=== PATIENT | male | born 1990 | race American Indian/Alaskan Native ===

== ENCOUNTER 2017-03-15 00:56 | Emergency (ER) | payer SELFPAY ==
[2016-06-03 10:27] VITALS: BMI 27.7
[2017-03-15] MEDS ORDERED: Sodium Chloride 0.9% 1,000 ML IV STA (01:45)
--- NOTE | 2017-03-15 01:47 | ED PDOC ---
HPI: Abdomen Time Seen by Provider: 03/15/17 01:14 Chief Complaint (Nursing): Abdominal Pain Chief Complaint (Provider): abdominal pain History Per: Patient History/Exam Limitations: no limitations Onset/Duration Of Symptoms: Days (3) Current Symptoms Are (Timing): Still Present Location Of Pain/Discomfort: Epigastric Additional History Per: Patient Additional Complaint(s): 27 y/o male presents with epigastric abdominal pain x 3 days. Patient states on Saturday while at work he vomited once and was sent home. States he has been able to eat since then, but notes intermittent abdominal pain since then. Denies fever, chest pain, shortness of breath, changes in bowel movements, urinary symptoms. Patient states he recently stopped eating meat 1 day before onset of symptoms, has been eating a lot of fruits. Past Medical History Reviewed: Historical Data, Nursing Documentation, Vital Signs Vital Signs: Last Vital Signs Temp 98.0 F 03/15/17 01:11 Pulse 50 L 03/15/17 01:11 Resp 16 03/15/17 01:11 BP 120/66 03/15/17 01:11 Pulse Ox 99 03/15/17 01:47 - Medical History PMH: Asthma, Back Problems - Surgical History Surgical History: Back Surgery - Family History Family History: States: Unknown Family Hx - Immunization History Hx Tetanus Toxoid Vaccination: Yes Hx Influenza Vaccination: Yes Hx Pneumococcal Vaccination: No - Home Medications Home Medications: Ambulatory Orders Medication Instructions Recorded Hydrocortisone 2.5% (Rectal) 30 applic [place] BID #1 tube 08/24/14 [Anusol-HC] Ondansetron ODT [Zofran ODT] 4 mg PO Q8 PRN #12 odt 12/01/15 Dexamethasone/Tobramycin [Tobradex 5 ml TOP QID #1 bottle 02/22/16 0.1%-0.3% 2.5 Ml] Ibuprofen [Motrin] 600 mg PO Q6 PRN #15 tab 02/22/16 Albuterol HFA [Ventolin HFA 90 1 puff IH ASDIR #1 unit 03/21/16 mcg/actuation (8 g)] Azithromycin [Zithromax] 250 mg PO DAILY #6 tab 03/21/16 Benzonatate 200 mg PO TID PRN #20 capsule 03/21/16 Methylprednisolone [Medrol Dose 4 mg PO ASDIR #21 mg 03/21/16 Pack (21 tabs)] Cephalexin [cephalexin] 500 mg PO BID #14 cap 06/03/16 Famotidine [Pepcid] 20 mg PO BID #20 tab 03/15/17 - Allergies Allergies/Adverse Reactions: Allergies Allergy/AdvReac Type Severity Reaction Status Date / Time No Known Allergies Allergy Verified 01/17/16 21:23 Review of Systems ROS Statement: Except As Marked, All Systems Reviewed And Found Negative Gastrointestinal: Positive for: Abdominal Pain Physical Exam - Reviewed Nursing Documentation Reviewed: Yes Vital Signs Reviewed: Yes - Physical Exam Appears: Positive for: Well, Non-toxic, No Acute Distress Head Exam: Positive for: ATRAUMATIC, NORMAL INSPECTION, NORMOCEPHALIC Skin: Positive for: Normal Color Eye Exam: Positive for: Normal appearance ENT: Positive for: Normal ENT Inspection Cardiovascular/Chest: Positive for: Regular Rate, Rhythm Respiratory: Positive for: Normal Breath Sounds Gastrointestinal/Abdominal: Positive for: Bowel Sounds, Soft, Tenderness ( epigastric) Back: Positive for: Normal Inspection Extremity: Positive for: Normal ROM Neurologic/Psych: Positive for: Alert, Oriented - Laboratory Results Result Diagrams: 03/15/17 01:47 03/15/17 01:47 - ECG O2 Sat by Pulse Oximetry: 99 - Progress ED Course And Treament: labs, IV fluids, IV pepcid On re-eval, patient states he is feeling better. Patient educated on findings, discharged with rx pepcid. Advised follow up PMD 2-3 days. Return to ED for worsening/concerning symptoms. Disposition - Clinical Impression Clinical Impression: Abdominal pain - Patient ED Disposition Is Patient to be Admitted: No Counseled Patient/Family Regarding: Studies Performed, Diagnosis, Need For Followup, Rx Given - Disposition Disposition: Routine/Home Disposition Time: 03:02 Condition: IMPROVED Prescriptions: Famotidine [Pepcid] 20 mg PO BID #20 tab Instructions: Abdominal Pain (ED) Forms: [facility] ED School/Work Excuse
[2017-03-15 02:19] LABS: ALB/GLOB RATIO 1.3 (1.0-2.1); ALKALINE PHOSPHATASE 84 U/L (38-126); ALT/SGPT 24 U/L (21-72); AST/SGOT 21 U/L (17-59); BILIRUBIN,TOTAL 0.4 mg/dl (0.2-1.3); BLOOD UREA NITROGEN 9 mg/dl (9-20); CALCIUM 8.9 mg/dL (8.4-10.2); CARBON DIOXIDE 26 mmol/L (22-30); CHLORIDE 106 mmol/L (98-107); GFR AFRICAN-AMERICAN > 60; GLUCOSE,RANDOM 91 mg/dL (75-110); LIPASE 95 U/L (23-300); POTASSIUM 4.1 MMOL/L (3.6-5.0); SODIUM 143 mmol/l (132-148)
[2017-03-15 02:25] LABS: BASO % 0.5 % (0.0-2.0); EOS # 0.1 K/uL (0.0-0.7); EOS % 1.4 % (0.0-4.0); HEMATOCRIT 42.3 % (35.0-51.0); LYMPH # 2.8 K/uL (1.0-4.3); LYMPH % 32.4 % (20.0-40.0); MEAN CELL VOLUME 92.6 fl (80.0-94.0); MEAN CORPUSCULAR HEMOGLOBIN 30.3 pg (27.0-31.0); MEAN CORPUSCULAR HGB CONC 32.8 g/dL (33.0-37.0); MEAN PLATELET VOLUME 7.7 fl (7.2-11.7); MONO # 0.8 K/uL (0.0-0.8); MONO % 8.8 % (0.0-10.0); NEUT % 56.9 % (50.0-75.0); NRBC % 0.1 % (0.0-0.0); RED CELL DISTRIBUTION WIDTH 14.4 % (11.5-14.5); WHITE BLOOD COUNT 8.8 K/uL (4.8-10.8)
[2017-03-15 03:20] VITALS: BP 120/70; PULSE 62; RESP 17; TEMP 98.2; O2SAT 100
== END 2017-03-15 03:15 | disposition home or self-care (01) ==
LOC: H.ER 00:56
DX: R10.9 Unspecified abdominal pain (principal); R11.10 Vomiting, unspecified
CPT/HCPCS: 80053; 83690; 85025; 96361; 96374; 99283; J7040

== ENCOUNTER 2017-10-31 11:05 | Emergency (ER) | payer SELFPAY ==
[2017-10-31 11:05] VITALS: BMI 27.7
[2017-10-31 12:29] VITALS: BP 124/57
[2017-10-31] MEDS ORDERED: Sodium Chloride 0.9% 1,000 ML IV STA (12:40)
--- NOTE | 2017-10-31 12:44 | ED PDOC ---
HPI: Abdomen Time Seen by Provider: 10/31/17 12:41 Chief Complaint (Nursing): Abdominal Pain Chief Complaint (Provider): VOMITING History Per: Patient (27 Y/O MALE HERE FOR EVALUATION OF 2 EPISODES OF VOMITING. DENIES ANY DIARRHEA. NOTES TACTILE FEVER YESTERDAY. NOTES ILL CONTACT WITH CHILDREN. ALSO WORKS IN A SCHOOL.) Past Medical History Reviewed: Historical Data, Nursing Documentation, Vital Signs Vital Signs: Last Vital Signs Temp 99.9 F H 10/31/17 14:37 Pulse 57 L 10/31/17 15:08 Resp 18 10/31/17 15:08 BP 124/57 L 10/31/17 12:26 Pulse Ox 99 10/31/17 15:08 - Medical History PMH: Asthma, Back Problems (scoliosis) Other PMH: SCOLISIS SX 2006 - Surgical History Surgical History: Back Surgery - Family History Family History: States: Unknown Family Hx - Immunization History Hx Tetanus Toxoid Vaccination: Yes Hx Influenza Vaccination: Yes Hx Pneumococcal Vaccination: No - Home Medications Home Medications: Ambulatory Orders Medication Instructions Recorded Hydrocortisone 2.5% (Rectal) 30 applic [place] BID #1 tube 08/24/14 [Anusol-HC] Ondansetron ODT [Zofran ODT] 4 mg PO Q8 PRN #12 odt 12/01/15 Dexamethasone/Tobramycin [Tobradex 5 ml TOP QID #1 bottle 02/22/16 0.1%-0.3% 2.5 Ml] Ibuprofen [Motrin] 600 mg PO Q6 PRN #15 tab 02/22/16 Albuterol HFA [Ventolin HFA 90 1 puff IH ASDIR #1 unit 03/21/16 mcg/actuation (8 g)] Azithromycin [Zithromax] 250 mg PO DAILY #6 tab 03/21/16 Benzonatate 200 mg PO TID PRN #20 capsule 03/21/16 Methylprednisolone [Medrol Dose 4 mg PO ASDIR #21 mg 03/21/16 Pack (21 tabs)] Cephalexin [cephalexin] 500 mg PO BID #14 cap 06/03/16 Famotidine [Pepcid] 20 mg PO BID #20 tab 03/15/17 Ranitidine HCl [Zantac 75] 75 mg PO BID #10 tablet 10/31/17 - Allergies Allergies/Adverse Reactions: Allergies Allergy/AdvReac Type Severity Reaction Status Date / Time No Known Allergies Allergy Verified 10/31/17 12:26 Review of Systems ROS Statement: Except As Marked, All Systems Reviewed And Found Negative Physical Exam - Reviewed Nursing Documentation Reviewed: Yes Vital Signs Reviewed: Yes - Physical Exam Appears: Positive for: Well, Non-toxic, No Acute Distress Head Exam: Positive for: ATRAUMATIC, NORMAL INSPECTION, NORMOCEPHALIC Skin: Positive for: Normal Color, Warm, DRY Eye Exam: Positive for: EOMI, Normal appearance, PERRL ENT: Positive for: Normal ENT Inspection Neck: Positive for: Normal, Painless ROM Cardiovascular/Chest: Positive for: Regular Rate, Rhythm Respiratory: Positive for: CNT, Normal Breath Sounds Gastrointestinal/Abdominal: Positive for: Normal Exam, Soft Back: Positive for: Normal Inspection Extremity: Positive for: Normal ROM Neurologic/Psych: Positive for: Alert, Oriented - Laboratory Results Result Diagrams: 10/31/17 12:47 10/31/17 12:47 - ECG O2 Sat by Pulse Oximetry: 99 - Progress ED Course And Treament: NS 1 LITER PEPCID 20 MG IV X 1 DOSE ZOFRAN 4 MG ODT Disposition - Clinical Impression Clinical Impression: Gastritis - Patient ED Disposition Is Patient to be Admitted: No - Disposition Referrals: [facility] [Outside] Disposition: Routine/Home Disposition Time: 15:09 Condition: FAIR Prescriptions: Ranitidine HCl [Zantac 75] 75 mg PO BID #10 tablet Instructions: Gastritis (DC), Ulcer and Gastritis Diet Forms: [employer] (Malay), [facility] ED School/Work Excuse
[2017-10-31 12:58] LABS: BASO # 0.1 K/uL (0.0-0.2); BASO % 0.9 % (0.0-2.0); EOS # 0.1 K/uL (0.0-0.7); EOS % 1.1 % (0.0-4.0); HEMOGLOBIN 15.2 g/dL (12.0-18.0); LYMPH # 1.9 K/uL (1.0-4.3); LYMPH % 32.7 % (20.0-40.0); MEAN CORPUSCULAR HEMOGLOBIN 31.4 pg (27.0-31.0); MEAN CORPUSCULAR HGB CONC 33.7 g/dL (33.0-37.0); MEAN PLATELET VOLUME 7.8 fl (7.2-11.7); MONO # 0.7 K/uL (0.0-0.8); MONO % 11.7 % (0.0-10.0); NEUT # 3.1 K/uL (1.8-7.0); NEUT % 53.6 % (50.0-75.0); RBC 4.84 Mil/uL (4.40-5.90); RED CELL DISTRIBUTION WIDTH 14.2 % (11.5-14.5); WHITE BLOOD COUNT 5.7 K/uL (4.8-10.8)
[2017-10-31 13:08] LABS: ALB/GLOB RATIO 1.2 (1.0-2.1); ALBUMIN 4.2 g/dL (3.5-5.0); ALT/SGPT 28 U/L (21-72); AST/SGOT 23 U/L (17-59); BLOOD UREA NITROGEN 11 mg/dl (9-20); CALCIUM 9.1 mg/dL (8.4-10.2); GFR AFRICAN-AMERICAN > 60; GFR NON-AFRICAN AMERICAN > 60
[2017-10-31 14:38] VITALS: TEMP 99.9
[2017-10-31 15:08] VITALS: PULSE 57; RESP 18; O2SAT 99
== END 2017-10-31 15:09 | disposition home or self-care (01) ==
LOC: H.ER 11:05
DX: K29.70 Gastritis, unspecified, without bleeding (principal); J45.909 Unspecified asthma, uncomplicated; M41.9 Scoliosis, unspecified
CPT/HCPCS: 80053; 85025; 96374; 99283; J7040

== ENCOUNTER 2018-04-22 10:01 | Emergency (ER) | payer OTHER ==
[2018-04-22 10:01] VITALS: BMI 27.7
--- NOTE | 2018-04-22 10:51 | ED PDOC ---
Upper Extremity Pain/Injury Time Seen by Provider: 04/22/18 10:37 Chief Complaint (Nursing): Upper Extremity Problem/Injury Chief Complaint (Provider): Upper Extremity Problem/Injury History Per: Patient History/Exam Limitations: no limitations Onset/Duration Of Symptoms: Days (x1 week) Current Symptoms Are (Timing): Gone Now Additional Complaint(s): 28 year old male presents to ED for an evaluation of left shoulder and arm pain associated with swelling status post playing basketball 1 week ago. He did not take any medications for pain, but states at present, all symptoms are resolved. Otherwise, he denies any chest pain, shortness of breath, numbness or weakness. He states he is actually here for a note to return to work. PCP: none provided Past Medical History Reviewed: Historical Data, Nursing Documentation, Vital Signs Vital Signs: Last Vital Signs Temp 98.3 F 04/22/18 10:12 Pulse 76 04/22/18 10:12 Resp 17 04/22/18 10:12 BP 143/70 04/22/18 10:12 Pulse Ox 99 04/22/18 10:12 - Medical History PMH: Asthma, Back Problems (scoliosis) - Surgical History Surgical History: Back Surgery - Family History Family History: States: Unknown Family Hx - Immunization History Hx Tetanus Toxoid Vaccination: Yes Hx Influenza Vaccination: Yes Hx Pneumococcal Vaccination: No - Home Medications Home Medications: Ambulatory Orders Medication Instructions Recorded Hydrocortisone 2.5% (Rectal) 30 applic [place] BID #1 tube 08/24/14 [Anusol-HC] Ondansetron ODT [Zofran ODT] 4 mg PO Q8 PRN #12 odt 12/01/15 Dexamethasone/Tobramycin [Tobradex 5 ml TOP QID #1 bottle 02/22/16 0.1%-0.3% 2.5 Ml] Ibuprofen [Motrin] 600 mg PO Q6 PRN #15 tab 02/22/16 Albuterol HFA [Ventolin HFA 90 1 puff IH ASDIR #1 unit 03/21/16 mcg/actuation (8 g)] Azithromycin [Zithromax] 250 mg PO DAILY #6 tab 03/21/16 Methylprednisolone [Medrol Dose 4 mg PO ASDIR #21 mg 03/21/16 Pack (21 tabs)] RX: Benzonatate 200 mg PO TID PRN #20 capsule 03/21/16 Cephalexin [cephalexin] 500 mg PO BID #14 cap 06/03/16 Famotidine [Pepcid] 20 mg PO BID #20 tab 03/15/17 Ranitidine HCl [Zantac 75] 75 mg PO BID #10 tablet 10/31/17 - Allergies Allergies/Adverse Reactions: Allergies Allergy/AdvReac Type Severity Reaction Status Date / Time No Known Allergies Allergy Verified 04/22/18 10:19 Review of Systems ROS Statement: Except As Marked, All Systems Reviewed And Found Negative Cardiovascular: Negative for: Chest Pain Respiratory: Negative for: Shortness of Breath Musculoskeletal: Positive for: Shoulder Pain (left-sided with swelling), Arm Pain (left-sided) Neurological: Negative for: Weakness, Numbness Physical Exam - Reviewed Nursing Documentation Reviewed: Yes Vital Signs Reviewed: Yes - Physical Exam Appears: Positive for: Well, Non-toxic, No Acute Distress Neck: Positive for: Normal, Painless ROM, Supple Cardiovascular/Chest: Positive for: Regular Rate, Rhythm Respiratory: Positive for: CNT, Normal Breath Sounds Back: Positive for: Normal Inspection. Negative for: L CVA Tenderness, R CVA Tenderness Extremity: Positive for: Normal ROM (left shoulder and wrist). Negative for: Tenderness, Deformity, Swelling (or erythema/ecchymosis) Neurologic/Psych: Positive for: Alert (x3), Oriented. Negative for: Motor/Sensory Deficits - ECG O2 Sat by Pulse Oximetry: 99 (RA) Pulse Ox Interpretation: Normal - Progress ED Course And Treament: 1723: Pt. here for a note to return to work. Has no symptoms currently. Medical Decision Making Medical Decision Making: Initial Impression: Left shoulder pain Time: 1056 --Patient declined pain medication when offered by provider. Upon evaluation, patient is medically stable and requires no further treatment in the ED at this time. Patient will be discharged home. Counseling was provided and all questions were answered regarding diagnosis and need for follow up with [facility]. There is agreement to discharge plan. Return if symptoms persist or worsen. Scribe Attestation: Documented by Nelli Kenny, acting as a scribe for Magan Diehl MD. Provider Scribe Attestation: All medical record entries made by the Scribe were at my direction and personally dictated by me. I have reviewed the chart and agree that the record accurately reflects my personal performance of the history, physical exam, medical decision making, and the department course for this patient. I have also personally directed, reviewed, and agree with the discharge instructions and disposition. Disposition - Clinical Impression Clinical Impression: Shoulder injury - Patient ED Disposition Is Patient to be Admitted: No - Disposition Referrals: [facility] [Outside] - 04/23/18 Disposition Time: 11:25 Condition: GOOD Additional Instructions: See the clinic for follow up and notes to return to work. Instructions: Shoulder Pain (DC)
[2018-04-22 11:26] VITALS: BP 110/70; PULSE 74; RESP 20; TEMP 98.6
[2018-04-22 16:39] VITALS: O2SAT 99
== END 2018-04-22 11:25 | disposition home or self-care (01) ==
LOC: H.ER 10:01
DX: M25.512 Pain in left shoulder (principal)